=== PATIENT | male | born 1945 | race Caucasian/White ===

== ENCOUNTER → 2025-01-15 09:59 | Outpatient (REF) | payer MEDICARE, OTHER, SELFPAY | LOC: RAD 09:59 | PROVIDERS: ATTENDING PHYSICIAN Student in an Organized Health Care Education/Training Program; FAMILY PHYSICIAN Family Medicine | DX: L93.1 Subacute cutaneous lupus erythematosus (principal); M19.90 Unspecified osteoarthritis, unspecified site; M79.641 Pain in right hand; M79.642 Pain in left hand; R53.1 Weakness | CPT/HCPCS: 73110; 73120 ==